=== PATIENT | male | born 1955 | race Caucasian/White ===

== ENCOUNTER 2018-03-05 14:44 | Emergency (ER) | payer MEDICAID ==
[~2018-03-05] VITALS: Ht 172.7 cm; Wt 86.2 kg
[2018-03-05 15:07] VITALS: BP 158/98
[2018-03-05] MEDS ORDERED: LEVOFLOXACIN 500 MG TAB PO ONE (17:20)
[2018-03-05] MEDS ORDERED: KETOROLAC 60 MG/2 ML VIAL IM ONE (17:20)
[2018-03-05] MEDS ORDERED: cefTRIAXone 1,000 MG in LIDOCAINE 1% ***ER ONLY *** 2.1 ML IM ONE (17:20)
[2018-03-05 17:25] LABS: APPEARANCE,URINE CLEAR (CLEAR); BILIRUBIN,URINE NEGATIVE (NEGATIVE); BLOOD, URINE TRACE-I (NEGATIVE); COLOR,URINE YELLOW (YELLOW); LEUKOCYTE ESTERASE ,URINE NEGATIVE (NEGATIVE); NITRITE, URINE NEGATIVE (NEGATIVE); UGLUCOSE NEGATIVE (NEGATIVE)
[2018-03-05] MEDS ORDERED: cefTRIAXone 1,000 MG VIAL ONE (17:53)
[2018-03-05] MEDS ORDERED: LIDOCAINE MPF 1% - 5 mL VIAL 5 ML ONE (17:54)
[2018-03-05 18:20] VITALS: BP 158/98
== END 2018-03-05 18:19 | disposition home or self-care (01) ==
LOC: MED 14:44
DX: N41.9 Inflammatory disease of prostate, unspecified (principal); I10 Essential (primary) hypertension
CPT/HCPCS: 81003; 82948; 96372; 99283; J0696; J1885; J2001

== ENCOUNTER 2020-11-12 10:05 | Emergency (ER) | payer OTHER ==
[~2020-11-12] VITALS: Ht 167.6 cm; Wt 85.7 kg
[2020-11-12 10:08] VITALS: BP 147/92
[2020-11-12] MEDS ORDERED: LIDOCAINE MPF 1% 10 MG/ML VIAL INJ ONE (11:15)
--- NOTE | 2020-11-12 11:16 | NUR ---
PT AMBULATED TO BED 8
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
--- NOTE | 2020-11-12 11:36 | NUR ---
RAD AT BEDSIDE
[2020-11-12] MEDS ORDERED: CEPH-588 PO (12:12)
[2020-11-12] MEDS ORDERED: NAPR-1704 PO (12:12)
--- NOTE | 2020-11-12 12:50 | NUR ---
Patient discharged with v/s stable. Written and verbal after care instructions ABOUT LACERATION CARE given and explained. Patient alert, oriented and verbalized understanding of instructions. Ambulatory with steady gait. All questions addressed prior to discharge. ID band removed. Patient advised to follow up with PMD. Rx of CEPHALEXIN AND NAPROXEN given. Patient educated on indication of medication including possible reaction and side effects. Opportunity to ask questions provided and answered.
== END 2020-11-12 12:50 | disposition home or self-care (01) ==
LOC: MED 10:05
DX: S61.215A Laceration without foreign body of left ring finger without damage to nail, initial encounter (principal); E11.9 Type 2 diabetes mellitus without complications; I10 Essential (primary) hypertension; W45.8XXA Other foreign body or object entering through skin, initial encounter; Y93.89 Activity, other specified; Y92.89 Other specified places as the place of occurrence of the external cause; Y99.8 Other external cause status
CPT/HCPCS: 12001; 73140; 90471; 90715; 99283; J2001; Q0092